=== PATIENT | male | born 1975 | race Caucasian/White ===

== ENCOUNTER 2018-06-22 03:59 | Emergency (ER) | payer OTHER ==
--- NOTE | 2018-06-22 04:06 | EDPHY ---
H & P Stated Complaint: N/D since 2200hrs Time Seen by Provider: 06/22/18 04:06 HPI/ROS: HPI CHIEF COMPLAINT: Nausea vomiting HISTORY OF PRESENT ILLNESS: 43-year-old male, otherwise healthy he is visiting from [facility] he is staying in a cabin up in [place], [place], [place] is [place] [address] [address] [address] He has been there for 4 days. Patient states that around 10:00 p.m. Last night he started feeling nauseous and had multiple episodes of vomiting. He states he vomited about 6 times. No blood. He did have 1 glass of wine this evening additionally smoked a cigar he is unsure if the cigar made him sick. He denies any significant abdominal pain. Denies chest pain or shortness of breath. States he is unsure if it was a combination this scar, glass of wine, altitude or something he ate however he states the other members in his cabin ate the same thing and were not sick. He denies any diarrhea. Denies any abdominal pain. Denies fever. Did have chills earlier. Past Medical History: Denies significant medical history Past Surgical History: Jaw surgery Social History: From [facility] denies daily use drugs alcohol tobacco. Family History: Noncontributory ROS REVIEW OF SYSTEMS: A comprehensive 10 point review of systems is otherwise negative aside from elements mentioned in the history of present illness. Exam Constitutional nontoxic. triage nursing summary reviewed, vital signs reviewed , awake/alert. Eyes normal conjunctivae and sclera, EOMI, PERRLA. HENT normal inspection, atraumatic, moist mucus membranes, no epistaxis, neck supple/ no meningismus, no raccoon eyes. Respiratory clear to auscultation bilaterally, normal breath sounds, no respiratory distress, no wheezing. Cardiovascular rate normal, regular rhythm, no murmur, no edema, distal pulses normal. Gastrointestinal soft, non-tender, no rebound, no guarding, normal bowel sounds, no distension, no pulsatile mass. Genitourinary no CVA tenderness. Musculoskeletal no midline vertebral tenderness, full range of motion, no calf swelling, no tenderness of extremities, no meningismus, good pulses, neurovascularly intact. Skin pink, warm, & dry, no rash, skin atraumatic. Neurologic awake, alert and oriented x 3, AAOx3, moves all 4 extremities equally, motor intact, sensory intact, CN II-XII intact, normal cerebellar, normal vision, normal speech. Psychiatric normal mood/affect. Heme/Lymph/Immune no lymphadenopathy. Differential Diagnosis: Includes but is not limited to in a particular order acute nausea vomiting, dehydration, electrolyte disturbance, gastritis, peptic ulcer disease, pancreatitis, altitude illness, other acute intra-abdominal process. Medical Decision Making: Plan for this patient IV establishment IV fluid bolus 1 L normal saline, IV Zofran 4 mg for nausea, IV Pepcid 20 mg for GI upset, basic blood work, and re-evaluate. Re-evaluation: 0616: I did re-evaluate the patient this time is resting comfortably. He states he feels much better after IV fluids and Phenergan. He took a brief nap here in emergency room he states his nausea is resolved. Patient's blood work has been reviewed. Mild leukocytosis most likely from vomiting however electrolytes appropriate. I did re-evaluate his abdomen at this time is soft nontender. He is completing his 2 L fluid bolus. He is requesting discharge however I will allow him to get his completion of his 2 L and then p.o. Challenge him to see how he does. 0644: Patient re-evaluated resting comfortably no acute distress. Feeling better after 2 L of fluid and IV Phenergan. He did p.o. Challenge and was able to the tolerate p.o.. I did discussed return precautions with him additionally Phenergan take-home pack provided. Understands bland diet over the next 24-48 hours no spicy fatty greasy foods. No alcohol. Return if worse return if worsening abdominal pain fever vomiting. Source: Patient - Personal History Current Tetanus/Diphtheria Vaccine: Yes Current Tetanus Diphtheria and Acellular Pertussis (TDAP): Yes - Medical/Surgical History Hx Asthma: No Hx Chronic Respiratory Disease: No Hx Diabetes: No Hx Cardiac Disease: No Hx Renal Disease: No Hx Cirrhosis: No Hx Alcoholism: No Hx HIV/AIDS: No Hx Splenectomy or Spleen Trauma: No Other PMH: Denies - Social History Smoking Status: Never smoked Constitutional: Initial Vital Signs Temperature (C) 36.3 C 06/22/18 04:03 Heart Rate 78 06/22/18 04:03 Respiratory Rate 18 06/22/18 04:03 Blood Pressure 115/76 06/22/18 04:03 O2 Sat (%) 98 06/22/18 04:03 O2 Delivery Mode Room Air Allergies/Adverse Reactions: No Known Allergies Allergy (Unverified 06/22/18 04:05) Home Medications: Medication Instructions Recorded Ondansetron HCl [Zofran] 4 mg PO Q4-6PRN PRN #10 tablet 06/22/18 Medical Decision Making - Data Points Laboratory Results: Laboratory Results 06/22/18 04:22 06/22/18 04:22 06/22/18 06/22/18 06/22/18 04:37 04:22 04:22 WBC 14.25 10^3/uL H 10^3/uL (3.80-9.50) RBC 5.51 10^6/uL 10^6/uL (4.40-6.38) Hgb 16.2 g/dL g/dL (13.7-17.5) Hct 47.8 % % (40.0-51.0) MCV 86.8 fL fL (81.5-99.8) MCH 29.4 pg pg (27.9-34.1) MCHC 33.9 g/dL g/dL (32.4-36.7) RDW 12.6 % % (11.5-15.2) Plt Count 338 10^3/uL 10^3/uL (150-400) MPV 9.8 fL fL (8.7-11.7) Neut % (Auto) 86.4 % H % (39.3-74.2) Lymph % (Auto) 8.8 % L % (15.0-45.0) [place] % (Auto) 3.9 % L % (4.5-13.0) Eos % (Auto) 0.0 % L % (0.6-7.6) Baso % (Auto) 0.5 % % (0.3-1.7) Nucleat RBC Rel Count 0.0 % % (0.0-0.2) Absolute Neuts (auto) 12.31 10^3/uL H 10^3/uL (1.70-6.50) Absolute Lymphs (auto) 1.25 10^3/uL 10^3/uL (1.00-3.00) Absolute Monos (auto) 0.56 10^3/uL 10^3/uL (0.30-0.80) Absolute Eos (auto) 0.00 10^3/uL L 10^3/uL (0.03-0.40) Absolute Basos (auto) 0.07 10^3/uL 10^3/uL (0.02-0.10) Absolute Nucleated RBC 0.00 10^3/uL 10^3/uL (0-0.01) Immature Gran % 0.4 % % (0.0-1.1) Immature Gran # 0.06 10^3/uL 10^3/uL (0.00-0.10) VBG Lactic Acid Sodium 139 mEq/L mEq/L (135-145) Potassium 4.0 mEq/L mEq/L (3.3-5.0) Chloride 102 mEq/L mEq/L (97-110) Carbon Dioxide 25 mEq/l mEq/l (22-31) Anion Gap 12 mEq/L mEq/L (8-16) BUN 17 mg/dL mg/dL (7-23) Creatinine 0.9 mg/dL mg/dL (0.7-1.3) Estimated GFR > 60 Glucose 149 mg/dL H mg/dL (70-100) Calcium 10.1 mg/dL mg/dL (8.5-10.4) Total Bilirubin 0.8 mg/dL mg/dL (0.1-1.4) Conjugated Bilirubin 0.2 mg/dL mg/dL (0.0-0.5) Unconjugated Bilirubin 0.6 mg/dL mg/dL (0.0-1.1) AST 28 IU/L IU/L (17-59) ALT 32 IU/L IU/L (21-72) Alkaline Phosphatase 56 IU/L IU/L (38-126) POC Troponin I 0.00 ng/mL ng/mL (0.00-0.08) Total Protein 8.0 g/dL g/dL (6.3-8.2) Albumin 4.9 g/dL g/dL (3.5-5.0) Lipase 94 IU/L IU/L (23-300) Urine Color Urine Appearance Urine pH Ur Specific [place] Urine Protein Urine Ketones Urine Blood Urine Nitrate Urine Bilirubin Urine Urobilinogen Ur Leukocyte Esterase Urine Glucose 06/22/18 06/22/18 04:22 04:14 WBC RBC Hgb Hct MCV MCH MCHC RDW Plt Count MPV Neut % (Auto) Lymph % (Auto) [place] % (Auto) Eos % (Auto) Baso % (Auto) Nucleat RBC Rel Count Absolute Neuts (auto) Absolute Lymphs (auto) Absolute Monos (auto) Absolute Eos (auto) Absolute Basos (auto) Absolute Nucleated RBC Immature Gran % Immature Gran # VBG Lactic Acid 1.8 mmol/L mmol/L (0.7-2.1) Sodium Potassium Chloride Carbon Dioxide Anion Gap BUN Creatinine Estimated GFR Glucose Calcium Total Bilirubin Conjugated Bilirubin Unconjugated Bilirubin AST ALT Alkaline Phosphatase POC Troponin I Total Protein Albumin Lipase Urine Color YELLOW Urine Appearance CLEAR Urine pH 7.0 (5.0-7.5) Ur Specific [place] 1.025 (1.002-1.030) Urine Protein NEGATIVE (NEGATIVE) Urine Ketones 2+ H (NEGATIVE) Urine Blood NEGATIVE (NEGATIVE) Urine Nitrate NEGATIVE (NEGATIVE) Urine Bilirubin NEGATIVE (NEGATIVE) Urine Urobilinogen NEGATIVE EU EU (0.2-1.0) Ur Leukocyte Esterase NEGATIVE (NEGATIVE) Urine Glucose NEGATIVE (NEGATIVE) Medications Given: Discontinued Medications Famotidine (Pepcid) 20 mg IVP EDNOW ONE Stop: 06/22/18 04:32 Last Admin: 06/22/18 04:33 Dose: 20 mg Sodium Chloride (Ns) 1,000 mls @ 0 mls/hr IV EDNOW ONE; Wide Open PRN Reason: Protocol Stop: 06/22/18 04:15 Last Admin: 06/22/18 04:22 Dose: 1,000 mls Sodium Chloride (Ns) 1,000 mls @ 0 mls/hr IV EDNOW ONE; Wide Open PRN Reason: Protocol Stop: 06/22/18 04:15 Last Admin: 06/22/18 04:22 Dose: 1,000 mls Ondansetron HCl (Zofran) 4 mg IVP EDNOW ONE Stop: 06/22/18 04:15 Last Admin: 06/22/18 04:22 Dose: 4 mg Promethazine HCl (Phenergan) 6.25 mg IVP ONCE ONE Stop: 06/22/18 05:16 Last Admin: 06/22/18 05:16 Dose: 6.25 mg Promethazine HCl (Phenergan 25 Mg Prepack #4) 1 btl TAKEHOME EDNOW ONE Stop: 06/22/18 06:18 Last Admin: 06/22/18 06:36 Dose: 1 btl Point of Care Test Results: Chemistry 06/22/18 04:37 POC Troponin I 0.00 ng/mL ng/mL (0.00-0.08) Departure - Departure Disposition: Home, Routine, Self-Care Clinical Impression: Vomiting Qualifiers: Vomiting type: unspecified Vomiting Intractability: non-intractable Nausea presence: with nausea Qualified Code(s): R11.2 - Nausea with vomiting, unspecified Condition: Good Instructions: Promethazine (By injection), Acute Nausea and Vomiting (ED) Additional Instructions: 1. Return to the emergency room if there is worsening nausea, vomiting, abdominal pain, fever. Referrals: LUAN ROSE [Other] - As per Instructions Prescriptions: Ondansetron HCl [Zofran] 4 mg PO Q4-6PRN PRN #10 tablet PRN Reason: Nausea/Vomiting, Use 1st
[2018-06-22] MEDS ORDERED: ONDANSETRON 4 MG/2 ML VIAL ONE (04:11)
[2018-06-22] MEDS ORDERED: NS 1,000 ML IV ONE ×2 (04:14)
[2018-06-22] MEDS ORDERED: ONDANSETRON 4 MG/2 ML VIAL IVP ONE (04:14)
[2018-06-22] MEDS ORDERED: FAMOTIDINE 20 MG/2 ML SDV ONE (04:15)
[2018-06-22] MEDS ORDERED: FAMOTIDINE 20 MG/2 ML SDV IVP ONE (04:31)
[2018-06-22 04:34] LABS: PLATELET COUNT 338 10^3/uL (150-400)
[2018-06-22] MEDS ORDERED: PROMETHAZINE HCL 25 MG/ML INJ ONE (05:14)
[2018-06-22] MEDS ORDERED: PROMETHAZINE HCL 25 MG/ML INJ IVP ONE (05:15)
[2018-06-22] MEDS ORDERED: PROMETHAZINE 25 MG PREPACK #4 BTL TAKEHOME ONE (06:17)
[2018-06-22 06:34] VITALS: BP 132/82
== END 2018-06-22 06:52 | disposition home or self-care (01) ==
DX: R11.2 Nausea with vomiting, unspecified (principal); E86.9 Volume depletion, unspecified
CPT/HCPCS: 84484-PO; 96374; J2405; J2550